=== PATIENT | male | born 2000 | race Caucasian/White ===

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

== ENCOUNTER 2021-04-23 23:34 | Observation (INO) ==
[2021-04-24] MEDS ORDERED: methylPREDNISolone 125 MG/2 ML VIAL IV STA (00:24)
[2021-04-24] MEDS ORDERED: ALBUT/IPRATROP 3MG/0.5MG NEB 3 ML VIAL NEB STA (00:24)
--- NOTE | 2021-04-24 00:44 | Emergency Department Note ---
Impression & Plan [facility] NAME: KENROY GROSS AGE: 20 SEX: M ARRIVES VIA: Walk-In INFORMANT: Patient ED PROVIDER(S): Grisel Fernando DO CHIEF COMPLAINT: Shortness of breath PLAN: Disposition: Admit to the [facility] Condition: Guarded MEDICAL DECISION MAKING: This is a 20-year-old male patient who presents to the emergency department with shortness of breath. The patient has a known history of asthma. He has been using his nebulizer more frequently at home. He finished up a tapering dose of prednisone yesterday but his symptoms continue to worsen. He is failing outpatient treatment. He was given a dose of IV Solu-Medrol here and an hour- long nebulizer treatment but still sounds tight. The patient describes a productive cough. He was given a dose of IV Rocephin and a dose of oral Zithromax. I discussed the case with the [facility] and they will evaluate for further management. Triage Nursing notes reviewed and agree with them. Prior medical records reviewed Vital Signs: reviewed and remarkable for tachycardia Differential diagnosis: URI, asthma exacerbation, respiratory failure, pneumonia, COVID-19 ER treatment provided: IV Solu-Medrol Hour-long DuoNeb treatment IV Rocephin Oral Zithromax Diagnostics interpreted by me: Cardiac Monitoring: Sinus tachycardia at 114 Laboratory studies: See below Imaging studies: As per my interpretation Chest x-ray: Increased opacification in the left lung base concerning for early pneumonia HPI: 20/M arrives for evaluation of shortness of breath. The patient has a history of asthma and has been taking a tapering course of prednisone over the past week. His last dose was yesterday. He has been increasing his frequency of DuoNeb nebulizer treatments. Despite these interventions, the patient's had persistently worsening productive cough and wheezing. ROS: See above HPI for pertinent positives & negatives. A total of 10 systems reviewed and were otherwise negative. PAST MEDICAL HISTORY:Asthma PAST SURGICAL HISTORY:See Below FAMILY HISTORY:See Below SOCIAL HISTORY:Giuliano at [facility] [employer] [facility] HOME MEDICATIONS:See Below ALLERGIES:See Below VITALS:See Below PHYSICAL EXAMINATION: HEENT: Head - normocephalic and atraumatic. Pupils are equal, round, and reactive to light. Extraocular eye muscles are intact, and sclera are anicteric. Nose - moist nasal mucosa without discharge. Mouth - moist buccal mucosa. Oropharynx is nonerythematous and there is no tonsillar exudate or edema noted. Neck: Supple; no cervical lymphadenopathy or nuchal rigidity Heart: Tachycardic rate and regular rhythm. There is a normal S1 and S2 with no murmurs, clicks, or gallops appreciated. Lungs: Diffuse inspiratory and expiratory wheezes Abdomen: Soft, completely nontender, nondistended, with good bowel sounds. There are no palpable pulsatile masses or hepatosplenomegaly. There is no guarding, rigidity, or rebound noted. Extremities: No evidence of cyanosis, clubbing, or edema. There are easily pal pable peripheral pulses. Skin: warm and dry with good turgor and no rashes. ED COURSE: Times/Reassessments: 0005: Patient was evaluated in room A 12. A complete history and physical was performed. An order was placed for continuous cardiac monitoring. An IV lock was initiated and labs were drawn as above. The patient is in a sinus tachycardia at 114. Patient was ordered to have 125 mg of IV Solu-Medrol. The patient was started on an hour-long DuoNeb treatment. Chest x-ray was performed as described above. I reevaluated him after the hour-long DuoNeb and he still sounded moderately tight. He was given 1 g of IV Rocephin and 500 mg of oral Zithromax. I discussed the case with the [facility] hospitalist. He will be evaluated f or inpatient care. Grisel Fernando DO Past Med/Surg History Medical History Asthma WELL CONTROLLED WITH SCHEDULED INH> SPRING SEASON IS WHEN FLARES UP Mass on back Surgical History H/O excision of mass (06/07/20) Excision of back mass 1.2cm Dr. Manzo 05/16/2020 H/O knee surgery left meniscus repair 2015 H/O right knee surgery right knee meniscus removal 2018 History of anesthesia reaction DURING BRONCHOSCOPY> WAS GIVEN SEDATIVE, BUT WAS MOSTLY AWAKE AND FELT EVERYTHING THAT WAS DONE. WOULD PREFER GENERAL IF POSSIBLE History of bronchoscopy ~2011 S/P excision of lipoma (05/16/20) Excision of back mass 1.2cm Dr. 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 Feels Safe at Home: Yes Diet Comment: special diet Dental Care, Regularly: Yes Physical Activity Frequency: Daily Assistive Devices: None Allergies Allergies Allergy/AdvReac Type Severity Reaction Status Date / Time No Known Allergies Allergy Verified 04/24/21 01:10 Home Meds Previous Rx's Medication Instructions Recorded levalbuterol HCl 1.25 mg/0.5 mL 1.25 mg NEB Q4R PRN #30 ea 04/14/19 solution for nebulization azithromycin 500 mg tablet 500 mg PO DAILY 3 Days #3 tab 04/24/21 (Zithromax) levalbuterol tartrate 45 2 inh INHALATION Q4H PRN #1 ea 04/24/21 mcg/actuation aerosol inhaler (Xopenex HFA) prednisone 20 mg tablet 20 mg PO DAILY #21 tab 04/24/21 tiotropium bromide 1.25 2 inh INHALATION DAILY #4 g 04/24/21 mcg/actuation mist for inhalation (Spiriva Respimat) Results & Data (ED) Vital Signs Vital Signs - 24 hr 04/23/21 23:37 Temperature 36.5 C Temperature Source Oral Pulse Rate 119 H Respiratory Rate 22 Blood Pressure 117/67 Blood Pressure Mean 83 Blood Pressure Position Sitting Pulse Oximetry 94 Oxygen Delivery Method Room Air Sepsis Recent Fever Within 48 Hours No Sepsis New/Unexplained Change in Mental Status No Sepsis Action Taken by Nursing No Action Required Laboratory Data Result diagrams: 04/24/21 08:18 04/24/21 08:18 Lab Results 09/27/21 09/27/21 09/27/21 Range/Units 00:47 00:47 00:51 WBC 17.63 H (4.8-10.8) K/uL RBC 5.36 (4.7-6.1) M/uL Hgb 16.6 (14.0-18.0) g/dL Hct 48.0 (42-52) % MCV 89.6 (80-100) fL MCH 31.0 (25-34) pg MCHC 34.6 (32-36) g/dL RDW Std Deviation 43.5 (36.4-46.3) fL RDW Coeff of Sarika 13.4 (11.5-14.5) % Plt Count 266 (130-400) K/uL MPV 9.4 (7.4-10.4) fL Immature Gran % (Auto) 0.2 % Neut % (Auto) 80.1 % Lymph % (Auto) 8.2 % Lincoln % (Auto) 5.7 % Eos % (Auto) 5.6 % Baso % (Auto) 0.2 % Neut # (Auto) 14.10 H (1.4-6.5) K/uL Lymph # (Auto) 1.45 (1.2-3.4) K/uL Lincoln # (Auto) 1.01 H (0.11-0.59) K/uL Eos # (Auto) 0.99 H (0-0.5) K/uL Baso # (Auto) 0.04 (0-0.2) K/uL Immature Gran # (Auto) 0.04 H (0.00-0.02) K/uL Sodium (136-145) mmol/L Potassium (3.5-5.1) mmol/L Chloride (98-107) mmol/L Carbon Dioxide (21-32) mmol/L Anion Gap (3-11) BUN (7-18) mg/dl Creatinine (0.6-1.4) mg/dl Est Cr Clr Drug Dosing ml/min Est GFR ( Amer) ml/min Est GFR (Non-Af Amer) ml/min BUN/Creatinine Ratio (10-20) Glucose (70-99) mg/dl Calcium (8.5-10.1) mg/dl Total Bilirubin (0.2-1) mg/dl AST (15-37) U/L ALT (12-78) U/L Alkaline Phosphatase (45-117) U/L Total Protein (6.4-8.2) gm/dl Albumin (3.4-5.0) gm/dl Globulin (2.5-4.0) gm/dl Albumin/Globulin Ratio (0.9-2) COVID-19 Eval Order Covid19 at [facility] SARS-CoV-2 (PCR) NEGATIVE (Negative) 04/24/21 Range/Units 00:51 WBC (4.8-10.8) K/uL RBC (4.7-6.1) M/uL Hgb (14.0-18.0) g/dL Hct (42-52) % MCV (80-100) fL MCH (25-34) pg MCHC (32-36) g/dL RDW Std Deviation (36.4-46.3) fL RDW Coeff of Sarika (11.5-14.5) % Plt Count (130-400) K/uL MPV (7.4-10.4) fL Immature Gran % (Auto) % Neut % (Auto) % Lymph % (Auto) % Lincoln % (Auto) % Eos % (Auto) % Baso % (Auto) % Neut # (Auto) (1.4-6.5) K/uL Lymph # (Auto) (1.2-3.4) K/uL Lincoln # (Auto) (0.11-0.59) K/uL Eos # (Auto) (0-0.5) K/uL Baso # (Auto) (0-0.2) K/uL Immature Gran # (Auto) (0.00-0.02) K/uL Sodium 135 L (136-145) mmol/L Potassium 3.5 (3.5-5.1) mmol/L Chloride 102 (98-107) mmol/L Carbon Dioxide 27 (21-32) mmol/L Anion Gap 6.0 (3-11) BUN 20 H (7-18) mg/dl Creatinine 1.17 (0.6-1.4) mg/dl Est Cr Clr Drug Dosing 113.6 ml/min Est GFR ( Amer) 103.4 ml/min Est GFR (Non-Af Amer) 89.2 ml/min BUN/Creatinine Ratio 17.1 (10-20) Glucose 112 H (70-99) mg/dl Calcium 9.5 (8.5-10.1) mg/dl Total Bilirubin 2.5 H (0.2-1) mg/dl AST 24 (15-37) U/L ALT 34 (12-78) U/L Alkaline Phosphatase 78 (45-117) U/L Total Protein 8.5 H (6.4-8.2) gm/dl Albumin 4.1 (3.4-5.0) gm/dl Globulin 4.4 H (2.5-4.0) gm/dl Albumin/Globulin Ratio 0.9 (0.9-2) COVID-19 Eval Order SARS-CoV-2 (PCR) (Negative) Administered Medications Discontinued Medications Albuterol (Albut/Ipratrop 3mg/0.5mg Neb 3 Ml Vial) 12 ml NEB ONE STA Stop: 04/24/21 00:25 Last Admin: 04/24/21 00:43 Dose: 12 ml Documented by: [id number] Azithromycin (Azithromycin 250 Mg Tab) 500 mg PO NOW ONE Stop: 04/24/21 02:22 Last Admin: 04/24/21 03:09 Dose: 500 mg Documented by: [id number] Sodium Chloride (Nss) 500 mls @ 999 mls/hr IV .Q31M ONE Stop: 04/24/21 02:48 Last Infusion: 04/24/21 04:15 Dose: 0 mls/hr Documented by: [id number] Admin: 04/24/21 03:14 Dose: 999 mls/hr Documented by: [id number] Ceftriaxone Sodium (Rocephin) 1,000 mg in 50 mls @ 100 mls/hr IV NOW STA Stop: 04/24/21 02:50 Last Infusion: 04/24/21 04:15 Dose: 0 mls/hr Documented by: [id number] Admin: 04/24/21 03:09 Dose: 100 mls/hr Documented by: [id number] Methylprednisolone 125 mg/ (Syringe) 2 mls @ 1.5 mls/min IV ONE ONE Stop: 04/24/21 08:01 Last Admin: 04/24/21 08:09 Dose: 1.5 mls/min Documented by: [id number] Methylprednisolone 60 mg/ (Syringe) 0.96 mls @ 1.5 mls/min IV NOW STA Stop: 04/24/21 14:08 Last Admin: 04/24/21 14:23 Dose: 1.5 mls/min Documented by: [id number] Levalbuterol HCl (Levalbuterol Hcl 1.25 Mg/3 Ml Neb) 1.25 mg NEB Q4R PRN PRN Reason: Shortness Of Breath Or Wheezing Stop: 05/24/21 04:32 Last Admin: 04/24/21 15:44 Dose: 1.25 mg Documented by: [id number] Admin: 04/24/21 11:10 Dose: 1.25 mg Documented by: [id number] Admin: 04/24/21 05:23 Dose: 1.25 mg Documented by: [id number] Methylprednisolone (Methylprednisolone 125 Mg/2 Ml Vial) 125 mg IV NOW STA Stop: 04/24/21 00:25 Last Admin: 04/24/21 00:45 Dose: 125 mg Documented by: [id number] Discharge Plan Visit Data Chief Complaint: Respiratory Problems Stated Complaint: ASTHMA ATTACK ED Provider: Grisel Fernando Discharge Problem: Asthma exacerbation Patient Disposition: Admitted As Inpatient Discharge Instructions Interventions: ED Discharge Assessment Last Done: 04/24/21 04:21 Discharge Problem: Asthma exacerbation Qualifiers: Asthma severity: moderate Asthma persistence: persistent Qualified Code(s): J45.41 - Moderate persistent asthma with (acute) exacerbation
[2021-04-24 01:55] LABS: Basophils # (auto) 0.04 K/uL (0-0.2); Basophils % (auto) 0.2 %; Eosinophils # (auto) 0.99 K/uL (0-0.5); Eosinophils % (auto) 5.6 %; Hemoglobin 16.6 g/dL (14.0-18.0); Immature Granulocytes # (auto) 0.04 K/uL (0.00-0.02); Immature Granulocytes % (auto) 0.2 %; Lymphocytes # (auto) 1.45 K/uL (1.2-3.4); Lymphocytes % (auto) 8.2 %; Mean Corpuscular Hgb Conc 34.6 g/dL (32-36); Mean Corpuscular Volume 89.6 fL (80-100); Mean Platelet Volume 9.4 fL (7.4-10.4); Monocytes # (auto) 1.01 K/uL (0.11-0.59); Monocytes % (auto) 5.7 %; Neutrophils % (auto) 80.1 %; Platelet Count 266 K/uL (130-400); RDW Coefficient of Variation 13.4 % (11.5-14.5); RDW Standard Deviation 43.5 fL (36.4-46.3); Red Blood Count 5.36 M/uL (4.7-6.1); White Blood Count 17.63 K/uL (4.8-10.8)
[2021-04-24 02:03] LABS: Albumin Level 4.1 gm/dl (3.4-5.0); BUN Creatinine Ratio 17.1 (10-20); Calcium 9.5 mg/dl (8.5-10.1); Creatinine Clr Calc Pharmacy 113.6 ml/min; Est GFR (African American) 103.4 ml/min; Est GFR (Non-African American) 89.2 ml/min; Potassium 3.5 mmol/L (3.5-5.1)
[2021-04-24 02:06] LABS: Albumin Globulin Ratio 0.9 (0.9-2); Bilirubin,Total 2.5 mg/dl (0.2-1); Globulin 4.4 gm/dl (2.5-4.0); Total Protein 8.5 gm/dl (6.4-8.2)
[2021-04-24] MEDS ORDERED: SODIUM CHLORIDE 0.9% 500 ML IV ONE (02:18)
[2021-04-24] MEDS ORDERED: AZITHROMYCIN 250 MG TAB PO ONE (02:21)
[2021-04-24] MEDS ORDERED: cefTRIAXone SODIUM 1,000 MG/50 ML BAG IV STA (02:21)
--- NOTE | 2021-04-24 03:25 | History & Physical Report ---
Date of Service April 24, 2021 Assessment & Plan (1) Asthma with acute exacerbation: Plan: Yaya Triana is a 20y/o M with PMH significant for severe persistent asthma; who presented to the ED for persistent asthma exacerbation symptoms. Asthma exacerbation: -completed oral prednisone taper earlier this week -has required multiple steroid tapers in the last year -cxr demonstrating ?infiltrate over left lower lobe -symptoms improved following administration of solu-medrol but with maintained audible wheeze -received Azithromycin and Rocephin in ED -procal pending -previously deemed a candidate for fasenra by Allergy/Immunology but approval process ?halted to COVID- pandemic -continue Solu-medrol 125mg q8h at this time -Xopenex q4h PRN wheezing/shortness of breath Leukocytosis: -WBC 17 on admission -likely 2/2 recent steroid taper, vs less likely pulmonary source -repeat in AM Diet: Regular CODE STATUS: Full Code DVT ppx: deferred at this time, encourage ambulation as tolerated (2) Leukocytosis: History of Present Illness Primary Care Provider: Iker Zavala MD Yaya Triana is a 20y/o M with PMH significant for severe persistent asthma; who presented to the ED for persistent asthma exacerbation symptoms. Over the last several years, has had numerous asthma exacerbations and ultimately has had transitions off an on varying inhalers. Over the last week, he has had increased night-time wheezing, shortness of breath, and cough requiring increased use of his rescue inhalers, and ultimately was put on a steroid taper which initially helped, but as he was weaned he had worsening of his symptoms. Throughout his life he has struggled with asthma and asthma exacerbations, with need for steroid tapers multiple times over the last year. Prior to he COVID- pandemic he was seen by Allergy/Immunology in regards to initiation of a biologic, but this approval process reportedly fell apart with the start of the pandemic. Currently does not use any daily preventative inhalers as they had all had varying levels of success but limited prevention. Last saw Pulmonology in August of 2019. Allergies Allergy/AdvReac Type Severity Reaction Status Date / Time No Known Allergies Allergy Verified 04/24/21 01:10 Home Medications Medication Instructions Recorded Confirmed Type levalbuterol HCl 1.25 mg/0.5 mL 1.25 mg NEB Q4R PRN #30 ea 04/14/19 04/24/21 Rx solution for nebulization azithromycin 500 mg tablet 500 mg PO DAILY 3 Days #3 tab 04/24/21 Rx (Zithromax) levalbuterol tartrate 45 2 inh INHALATION Q4H PRN #1 ea 04/24/21 Rx mcg/actuation aerosol inhaler (Xopenex HFA) prednisone 20 mg tablet 20 mg PO DAILY #21 tab 04/24/21 Rx tiotropium bromide 1.25 2 inh INHALATION DAILY #4 g 04/24/21 Rx mcg/actuation mist for inhalation (Spiriva Respimat) Past Med/Surg History Medical History Asthma WELL CONTROLLED WITH SCHEDULED INH> SPRING SEASON IS WHEN FLARES UP Mass on back Surgical History H/O excision of mass (06/07/20) Excision of back mass 1.2cm Dr. Manzo 05/16/2020 H/O knee surgery left meniscus repair 2015 H/O right knee surgery right knee meniscus removal 2018 History of anesthesia reaction DURING BRONCHOSCOPY> WAS GIVEN SEDATIVE, BUT WAS MOSTLY AWAKE AND FELT EVERYTHING THAT WAS DONE. WOULD PREFER GENERAL IF POSSIBLE History of bronchoscopy ~2011 S/P excision of lipoma (05/16/20) Excision of back mass 1.2cm Dr. 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: Yes Diet Comment: special diet Dental Care, Regularly: Yes Physical Activity Frequency: Daily Assistive Devices: None Review of Systems Review of Systems: All systems reviewed & are unremarkable except as noted in HPI & below Physical Exam Constitutional: WD/WN, vitals as above Eyes: PERRL, conjunctivae normal, anicteric sclerae Respiratory: normal respiratory effort, able to speak in complete sentences and + audible wheezes; no respiratory distress and does not use accessory muscles Auscultation: + wheezes (whole field b/l); no diminished lung sounds, no crackles, no rales and no rhonchi Cardiovascular: Rate/Rhythm: regular rate and regular rhythm Heart Sounds: no gallop, no murmur and no cardiac rub Vessels: normal peripheral pulses; no JVD Extremities: no edema Musculoskeletal: no cyanosis or clubbing, extremities motor strength 5/5 Skin: no rashes, warm and dry Neurologic: PERRL, EOMI, accommodation nl, no face palsy, no dysarthria CN's II-XI intact bilaterally and moves all extremities Psychiatric: Orientation: alert and oriented x 3 Results & Data Results & Data ([facility]) Vital Signs (Past 12 Hours) Vital Signs Temp Pulse Pulse Resp BP Pulse Ox 04/24/21 01:01 89 18 141/89 H 99 04/24/21 00:55 80 17 99 04/24/21 00:50 85 14 99 04/24/21 00:44 87 22 94 04/24/21 00:40 86 94 04/24/21 00:30 89 13 96 04/24/21 00:20 92 H 20 97 04/24/21 00:10 91 H 16 96 04/24/21 00:00 100 H 15 95 04/23/21 23:57 98 H 20 96 04/23/21 23:37 36.5 C 119 H 22 117/67 94 Laboratory Results 04/24/21 04/24/21 04/24/21 Range/Units 00:51 00:51 00:47 WBC 17.63 H (4.8-10.8) K/uL RBC 5.36 (4.7-6.1) M/uL Hgb 16.6 (14.0-18.0) g/dL Hct 48.0 (42-52) % MCV 89.6 (80-100) fL MCH 31.0 (25-34) pg MCHC 34.6 (32-36) g/dL RDW Std Deviation 43.5 (36.4-46.3) fL RDW Coeff of Sarika 13.4 (11.5-14.5) % Plt Count 266 (130-400) K/uL MPV 9.4 (7.4-10.4) fL Immature Gran % (Auto) 0.2 % Neut % (Auto) 80.1 % Lymph % (Auto) 8.2 % Kendall % (Auto) 5.7 % Eos % (Auto) 5.6 % Baso % (Auto) 0.2 % Neut # (Auto) 14.10 H (1.4-6.5) K/uL Lymph # (Auto) 1.45 (1.2-3.4) K/uL Kendall # (Auto) 1.01 H (0.11-0.59) K/uL Eos # (Auto) 0.99 H (0-0.5) K/uL Baso # (Auto) 0.04 (0-0.2) K/uL Immature Gran # (Auto) 0.04 H (0.00-0.02) K/uL Sodium 135 L (136-145) mmol/L Potassium 3.5 (3.5-5.1) mmol/L Chloride 102 (98-107) mmol/L Carbon Dioxide 27 (21-32) mmol/L Anion Gap 6.0 (3-11) BUN 20 H (7-18) mg/dl Creatinine 1.17 (0.6-1.4) mg/dl Est Cr Clr Drug Dosing 113.6 ml/min Est GFR ( Amer) 103.4 ml/min Est GFR (Non-Af Amer) 89.2 ml/min BUN/Creatinine Ratio 17.1 (10-20) Glucose 112 H (70-99) mg/dl Calcium 9.5 (8.5-10.1) mg/dl Total Bilirubin 2.5 H (0.2-1) mg/dl AST 24 (15-37) U/L ALT 34 (12-78) U/L Alkaline Phosphatase 78 (45-117) U/L Total Protein 8.5 H (6.4-8.2) gm/dl Albumin 4.1 (3.4-5.0) gm/dl Globulin 4.4 H (2.5-4.0) gm/dl Albumin/Globulin Ratio 0.9 (0.9-2) COVID-19 Eval Order SARS-CoV-2 (PCR) NEGATIVE (Negative) 04/24/21 Range/Units 00:47 WBC (4.8-10.8) K/uL RBC (4.7-6.1) M/uL Hgb (14.0-18.0) g/dL Hct (42-52) % MCV (80-100) fL MCH (25-34) pg MCHC (32-36) g/dL RDW Std Deviation (36.4-46.3) fL RDW Coeff of Sarika (11.5-14.5) % Plt Count (130-400) K/uL MPV (7.4-10.4) fL Immature Gran % (Auto) % Neut % (Auto) % Lymph % (Auto) % Kendall % (Auto) % Eos % (Auto) % Baso % (Auto) % Neut # (Auto) (1.4-6.5) K/uL Lymph # (Auto) (1.2-3.4) K/uL Kendall # (Auto) (0.11-0.59) K/uL Eos # (Auto) (0-0.5) K/uL Baso # (Auto) (0-0.2) K/uL Immature Gran # (Auto) (0.00-0.02) K/uL Sodium (136-145) mmol/L Potassium (3.5-5.1) mmol/L Chloride (98-107) mmol/L Carbon Dioxide (21-32) mmol/L Anion Gap (3-11) BUN (7-18) mg/dl Creatinine (0.6-1.4) mg/dl Est Cr Clr Drug Dosing ml/min Est GFR ( Amer) ml/min Est GFR (Non-Af Amer) ml/min BUN/Creatinine Ratio (10-20) Glucose (70-99) mg/dl Calcium (8.5-10.1) mg/dl Total Bilirubin (0.2-1) mg/dl AST (15-37) U/L ALT (12-78) U/L Alkaline Phosphatase (45-117) U/L Total Protein (6.4-8.2) gm/dl Albumin (3.4-5.0) gm/dl Globulin (2.5-4.0) gm/dl Albumin/Globulin Ratio (0.9-2) COVID-19 Eval Order Covid19 at [facility] SARS-CoV-2 (PCR) (Negative) Medications Administered Current Inpatient Medications Acetaminophen (Acetaminophen 325 Mg Tab) 650 mg PO Q4H PRN PRN Reason: pain/fever Stop: 05/24/21 04:32 Al Hydrox/Mg Hydrox/Simethicone (Aluminum/Magnesium Susp 30 Ml Udc) 30 ml PO Q6H PRN PRN Reason: Dyspepsia Stop: 05/24/21 04:32 Methylprednisolone 125 mg/ (Syringe) 2 mls @ 1.5 mls/min IV ONE ONE Stop: 04/24/21 08:01 Levalbuterol HCl (Levalbuterol Tartrate 15 Gm Hfa.Aer.Ad) 2 puffs INH Q4H PRN PRN Reason: Shortness Of Breath Stop: 05/24/21 04:32 Levalbuterol HCl (Levalbuterol Hcl 1.25 Mg/3 Ml Neb) 1.25 mg NEB Q4R PRN PRN Reason: Shortness Of Breath Or Wheezing Stop: 05/24/21 04:32 Magnesium Hydroxide (Magnesium Hydroxide Susp 30 Ml Udc) 30 ml PO Q6H PRN PRN Reason: Constipation Stop: 05/24/21 04:32 Ondansetron HCl (Ondansetron Inj 2 Mg/Ml 2 Ml Vial) 4 mg IV Q6H PRN PRN Reason: Nausea Stop: 05/24/21 04:32 Polyethylene Glycol (Polyethylene (Miralax) 17 Gm Pack) 17 gm PO DAILY PRN PRN Reason: Constipation Stop: 05/24/21 04:32 Supervising Physician Co-Signing Physician Notes Attending addendum: I have physically seen this patient, have supervised the medical residents activities, and agree with the H&P unless as otherwise noted. Assessment and Plan: Asthma exacerbation- Methylprednisolone 40 mg IV every 8 hours Status post azithromycin and ceftriaxone while in the ED Neutrophilic leukocytosis on laboratories which may be secondary to oral prednisone as outpatient Xopenex every 4 hours as needed Remaining orders and notations as noted Resident Activity Tracking Resident Involvement: Resident Care Provided Care Provided: Adult Hospital Medicine (1) Asthma with acute exacerbation Asthma persistence: persistent Asthma severity: severe Qualified Code(s): J45.51 - Severe persistent asthma with (acute) exacerbation
[2021-04-24] MEDS ORDERED: POLYETHYLENE (MIRALAX) 17 GM PACK PO PRN (04:33)
[2021-04-24] MEDS ORDERED: MAGNESIUM HYDROXIDE SUSP 30 ML UDC PO PRN (04:33)
[2021-04-24] MEDS ORDERED: ALUMINUM/MAGNESIUM SUSP 30 ML UDC PO PRN (04:33)
[2021-04-24] MEDS ORDERED: LEVALBUTEROL TARTRATE 15 GM HFA.AER.AD INH PRN (04:33)
[2021-04-24] MEDS ORDERED: ACETAMINOPHEN 325 MG TAB PO PRN (04:33)
[2021-04-24] MEDS ORDERED: ONDANSETRON INJ 2 MG/ML 2 ML VIAL IV PRN (04:33)
[2021-04-24] MEDS: LEVALBUTEROL HCL 1.25 MG/3 ML NEB NEB PRN ×3 (05:23→15:44)
--- NOTE | 2021-04-24 07:41 | XRay Report ---
XR chest 1V portable INDICATION: MN ^dyspnea . TECHNIQUE: Single frontal radiograph of the chest was obtained. Comparison: Comparison is made to chest one view 09/08/2020 FINDINGS: No lines and tubes are seen. The cardiomediastinal silhouette is normal. The lungs are clear. No evid ence of pleural effusion or pneumothorax. IMPRESSION: No acute chest disease. ACT 112: Negative or not required by law. Electronically signed by: Leo Alvares M.D. 04/24/2021 7:40 AM
[2021-04-24] MEDS ORDERED: methylPREDNISolone 125 MG in SYRINGE 0 ML IV ONE (08:00)
[2021-04-24] MEDS ORDERED: methylPREDNISolone 125 MG/2 ML VIAL IV SCH (08:30)
[2021-04-24 08:38] LABS: Basophils # (auto) 0.01 K/uL (0-0.2); Basophils % (auto) 0.1 %; Hemoglobin 15.4 g/dL (14.0-18.0); Immature Granulocytes # (auto) 0.05 K/uL (0.00-0.02); Immature Granulocytes % (auto) 0.3 %; Lymphocytes # (auto) 0.58 K/uL (1.2-3.4); Lymphocytes % (auto) 3.7 %; Mean Corpuscular Hemoglobin 30.5 pg (25-34); Mean Corpuscular Volume 87.1 fL (80-100); Mean Platelet Volume 8.9 fL (7.4-10.4); Monocytes % (auto) 0.6 %; Neutrophils # (auto) 14.94 K/uL (1.4-6.5); Neutrophils % (auto) 95.3 %; Platelet Count 243 K/uL (130-400); RDW Coefficient of Variation 13.4 % (11.5-14.5); RDW Standard Deviation 42.7 fL (36.4-46.3); Red Blood Count 5.05 M/uL (4.7-6.1); White Blood Count 15.68 K/uL (4.8-10.8)
[2021-04-24 09:19] LABS: BUN Creatinine Ratio 18.1 (10-20); Calcium 9.3 mg/dl (8.5-10.1); Creatinine Clr Calc Pharmacy 141.1 ml/min; Est GFR (African American) 134.7 ml/min; Est GFR (Non-African American) 116.2 ml/min; Potassium 4.2 mmol/L (3.5-5.1)
[2021-04-24] MEDS ORDERED: methylPREDNISolone 60 MG in SYRINGE 0 ML IV STA (14:07)
--- NOTE | 2021-04-24 18:59 | Discharge Summary ---
Date of Service April 24, 2021 Admission HPI Per Admitting Provider Yaya Triana is a 20y/o M with PMH significant for severe persistent asthma; who presented to the ED for persistent asthma exacerbation symptoms. Over the last several years, has had numerous asthma exacerbations and ultimately has had transitions off an on varying inhalers. Over the last week, he has had increased night-time wheezing, shortness of breath, and cough requiring increased use of his rescue inhalers, and ultimately was put on a steroid taper which initially helped, but as he was weaned he had worsening of his symptoms. Throughout his life he has struggled with asthma and asthma exacerbations, with need for steroid tapers multiple times over the last year. Prior to he COVID-19 pandemic he was seen by Allergy/Immunology in regards to initiation of a biologic, but this approval process reportedly fell apart with the start of the pandemic. Currently does not use any daily preventative inhalers as they had all had varying levels of success but limited prevention. Last saw Pulmonology in August of 2019. Principal Diagnosis Asthma Exacerbation Discharge Exam PHYSICAL EXAM General Appearance: WDWN in NAD who is A&O x 3 HEENT: Head is normocephalic/atraumatic; Hearing grossly intact; Mucous membranes moist; Pharynx negative for exudate/lesions Neck: Supple; Trachea midline; Neg JVD; Neg lymphadenopathy Heart: RRR with no M/G/R Lungs: Expiratory wheezing noted more prominent on RLL but good aeration; Respirations unlabored; Neg accessory muscle use; able to carry full conversation without SOB or stopping Abdomen: Soft, non-tender, non-distended; Positive BS x 4 quadrants; Neg organomegaly Extremities: Capillary refill < 2 seconds; Neg cyanosis or edema Neurological: Speech clear; Gross motor/sensory function intact; Neg focal neurologic deficits Psychiatric: Appropriate mood/affect Skin: Normal Color; Warm/Dry; Neg rashes, ecchymosis, lacerations/ulcerations Discharge Data Allergies Allergy/AdvReac Type Severity Reaction Status Date / Time No Known Allergies Allergy Verified 04/24/21 01:10 Consultations 04/24/21 02:30 ED Decision to Admit Stat Ordered Studies Chest X-Ray 04/24/21 00:24 XR chest 1V portable INDICATION: MN ^dyspnea . TECHNIQUE: Single frontal radiograph of the chest was obtained. Comparison: Comparison is made to chest one view 09/08/2020 FINDINGS: No lines and tubes are seen. The cardiomediastinal silhouette is normal. The lungs are clear. No evidence of pleural effusion or pneumothorax. IMPRESSION: No acute chest disease. ACT 112: Negative or not required by law. Electronically signed by: Leo Alvares M.D. 04/24/2021 7:40 AM Hospital Course (1) Asthma with acute exacerbation: Yaya Triana is a 20y/o M with PMH significant for severe persistent asthma; who presented to the ED for persistent asthma exacerbation symptoms. - Improved with IV Solu-Medrol and Nebulizer treatments - Pt reports exposure to a friend who tested positive for Strep but he was tested and negative and sore throat and URI symptoms resolved; States cough got dry and was having more wheezing but reports chronically wheezing - As mentioned in HPI - he was taken off maintenance inhalers with goal for Fasenra but this was not approved; he states he has lost significant weight and has had less issues with his asthma but seems to flair around this time each year - Recommend re-establishment with Pulm and Allergy as he was unable to follow-up last year due to COVID shutdowns and [place] - Will do a longer steroid taper - Prednisone 60 mg daily x 5 days then 40 mg x 2 days then 20 mg x 2 days - No evidence of pneumonia on XRAY - however will completed Zithromax 500 mg x 3 days; procalcitonin negative - He states he had some relief with Spiriva and will add this to his regimen for the time being until F/U - Refilled Xopenex inhaler Leukocytosis: -WBC 17 on admission and improved to 15 - possibly steroid use - but treatment with Zithromax as stated above - Recommend F/U with Pulmonology and [facility] [employer]; However it appears weight loss has assisted with his asthma management so maintenance inhalers may be more beneficial at this time or can continue pursuing options of biologicls Total Time Total Time Spent Total Time Spent (In Minutes): Spent greater than 30 minutes preparing patient for discharge. This includes discussion with patient/family, assessment, intervention, medication reconciliation, and coordination of care. Discharge Plan Discharge Items Patient Disposition: Home - Self-Care Reason For Visit: ASTHMA EXACERBATION Discharge Diagnosis: Asthma Exacerbation Activity: Resume your previous activity Non-emergency contact: Primary Care Provider Call non-emergency contact if: you have any medication questions, your symptoms worsen and you have a fever Follow-up/Referrals: Kwabena Louie MD [Physician] - 06/08/21 3:15 pm (Office will you to move up the appointment) Iker Zavala MD [Primary Care Provider] - (Office will call you to schedule a follow up) Diet: Regular Addtl Attending Provider Instructions: Asthma: - You will be prescribed a longer steroid taper. You will start this tomorrow. -- Take Prednisone 60 mg x 5 days then 40 mg x 2 days then 20 mg x 2 days - We will prescribe Spiriva to take daily to see if this helps this exacerbation; Continue your inhaler and nebulizers as needed - We will continue a course of Zithromax which is an antibiotic to cover for atypical bacterial infections - Recommend that you follow-up with your family doctor and pulmonology while here in [place]; May be worth seeing Dr. Rush (control operator) again to see if other options are available given the issue with Kelsie Pending Studies at Discharge: No Stand-Alone Forms: My [employer] Integration, Work/School Release, Smoking Cessation Medications and DC Order Prescriptions: New azithromycin [Zithromax] 500 mg tablet 500 mg PO DAILY 3 Days Qty: 3 RF: 0 Spiriva Respimat 1.25 mcg/actuation mist 2 inh inhalation DAILY Qty: 4 RF: 0 prednisone 20 mg tablet 20 mg PO DAILY Qty: 21 RF: 0 Continued levalbuterol HCl 1.25 mg/0.5 mL Solution For Nebulization 1.25 mg NEB Q4R PRN (Reason: Shortness Of Breath Or Wheezing) Qty: 30 RF: 0 levalbuterol tartrate [Xopenex HFA] 45 mcg/actuation HFA aerosol inhaler 2 inh INHALATION Q4H PRN (Reason: Shortness Of Breath) Qty: 1 RF: 1 Discharge Orders: Discharge Order (Routine); Ordered 04/24/21 Ordered By: Nahed Chatman/Other Patient Handouts: Asthma Admission Data Admit Date/Time: 04/24/21 03:24 Attending Provider: Leo Menon Admit Provider: Shad Rider Primary Care Provider: Iker Zavala Other Providers: Ahsan Hall Other Interventions: Discharge Summary Assessment (RN) Last Done: 04/24/21 16:15 Supervising Physician Co-Signing Physician Notes Attending note: patient seen and examined with Nahed Burks PA-C. I agree with her discharge summary. I personally reviewed the labs and imaging findings. patient feeling much better, breathing well on room air faint wheezing on exhalation, most pronounced in right upper lobe good air flow in all regions of the lungs - Asthma exacerbation, history of severe persistent asthma patient states he has not had many issues the past year, ever since he lost about 60 lbs he says that he always gets asthma flare this time of year his restaurant attendant back home would prescribe him Prednisone 60mg daily x 5 days and then a taper, would help him he has been off maintenance inhalers for the past year because he was trying to get approved for biologic therapy through control operator he says that this got derailed due to COVID 19 and restrictions (he says he had COVID 19 last fall, did not have any issue with it despite asthma) will discharge on Prednisone, he needs Levalbuterol refill to use PRN, he says Spiriva helped him more than anything, willing to go back on it ideally he would be n LABA and inhaled steroid but not interested at this time will refer to pulmonology, he saw Dr. Louie in the past, maybe can be referred back to control operator now that restrictions lifted Coding Level of Care Code OBSERV/HOSP SAME DATE LVL 2 Diagnoses Asthma with acute exacerbation J45.51 Asthma persistence: persistent Asthma severity: severe
--- NOTE | 2021-04-26 05:14 | Billing Data ---
Date of Service April 26, 2021 Coding Level of Care Code INT OBSERVATION CARE 70M LVL 3
== END 2021-04-24 16:50 | disposition home or self-care (01) ==
LOC: 3N 23:34 → ED 23:34 → SUATTDRO 04-24 03:24 → 3N 04-24 04:21